=== PATIENT | male | born 2000 | race African-American/Black ===

== ENCOUNTER 2023-11-06 09:17 | Emergency (ER) | payer OTHER ==
[~2023-11-06] VITALS: Ht 188 cm; Wt 93.2 kg
[2023-11-06 09:20] VITALS: TEMP 97.8
[2023-11-06] MEDS ORDERED: Sucralfate Susp 1 GM/10 ML UD PO ONE (10:15)
[2023-11-06] MEDS ORDERED: NS 1,000 ML IV ONE (10:15)
[2023-11-06 10:29] LABS: BASO % 0.4 % (0.0-2.0); EOS % 0.8 % (0.0-4.0); GRAN # 2.8 K/mm3 (1.4-6.5); GRAN % 55.2 % (42.2-75.2); HEMATOCRIT 41.8 % (42.0-52.0); HEMOGLOBIN 14.1 g/dl (13.5-18.0); LYMPH # 1.7 K/mm3 (1.2-3.4); LYMPH % 33.1 % (20.0-51.0); MEAN CELL VOLUME 89 fl (80.0-100.0); MEAN CORPUSCULAR HEMOGLOBIN 30 pg (27-31); MEAN CORPUSCULAR HGB CONC 34 g/dl (33.0-37.0); MEAN PLATELET VOLUME 10.4 fl (7.4-10.4); MONO # 0.5 K/mm3 (0.1-0.6); MONO % 10.5 % (1.7-9.3); PLATELET COUNT 212 K/mm3 (130-400); RED BLOOD COUNT 4.68 M/mm3 (4.20-5.60); REDCELL DISTRIBUTION WIDTH-CV 11.6 % (11.5-14.5)
[2023-11-06 10:37] LABS: ALBUMIN 3.9 g/dL (3.5-5.0); BILIRUBIN,TOTAL 0.7 mg/dL (0.2-1.2); CALCIUM 9.4 mg/dL (8.4-10.2); CREATININE, serum 1.27 mg/dL (0.72-1.25); POTASSIUM 4.4 mEq/L (3.5-4.5); TOTAL PROTEIN 7.3 g/dl (6.2-8.1)
[2023-11-06] MEDS ORDERED: Morphine 4 MG/ML VIAL IV ONE (11:15)
[2023-11-06] MEDS ORDERED: NORCO 325 MG-51 TAB PO (11:59)
[2023-11-06 12:05] VITALS: BP 134/85; PULSE 39
== END 2023-11-06 12:19 | disposition home or self-care (01) ==
LOC: COL.ER 09:17
PROVIDERS: Physician Assistant
DX: K20.90 Esophagitis, unspecified without bleeding (principal)
CPT/HCPCS: J2270; J7030